=== PATIENT | male | born 1990 | race Two or more races ===

== ENCOUNTER 2017-08-12 12:41 | Outpatient (CLI) | payer OTHER ==
[~2017-08-12] VITALS: Ht 170.2 cm; Wt 77.1 kg
[~2017-08-12 12:41] MED LIST: PANT40TA2 PO; PROPOFOL 200 MG/20 ML VIAL As Ordered ONE
[2017-08-12] MEDS ORDERED: LIDOCAINE 2% INJ 100 MG/5 ML SDV (FOR ANES.) As Ordered ONE (12:47)
[2017-08-12] MEDS ORDERED: fentaNYL 100 MCG/2 ML INJECTION (J3010) As Ordered ONE (14:14)
--- NOTE | 2017-08-12 14:24 | ROOR ---
Patient Name: Henrik Mckay Procedure Date: 08/12/2017 2:02 PM Date of : 1990 Age: 27 Room: [facility] Gender: Male Note Status: Finalized Procedure: Upper GI endoscopy + Balloon Dilatation Indications: Dysphagia, For therapy of eosinophilic esophagitis Providers: Ryley Eugene MD Referring MD: JERONIMO العلي MD Requesting Provider: Medicines: Monitored Anesthesia Care Complications: No immediate complications. Procedure: Pre-Anesthesia Assessment: - The heart rate, respiratory rate, oxygen saturations, blood pressure, adequacy of pulmonary ventilation, and response to care were monitored throughout the procedure. The Endoscope was introduced through the mouth, and advanced to the second part of duodenum. The upper GI endoscopy was accomplished without difficulty. The patient tolerated the procedure well. Findings: The Z-line was regular and was found 38 cm from the incisors. Mucosal changes including ringed esophagus and tight circumferential folds were found in the entire esophagus. A TTS dilator was passed through the scope. Dilation with a 15-16.5-18 mm balloon dilator was performed to 15 mm. The dilation site was examined and showed complete resolution of luminal narrowing. No other significant abnormalities were identified in a careful examination of the stomach. The exam of the duodenum was otherwise normal. Impression: - Z-line regular, 38 cm from the incisors. - Esophageal mucosal changes secondary to eosinophilic esophagitis. Dilated. - No specimens collected. - The examination was otherwise normal. Recommendation: - Patient has a contact number available for emergencies. The signs and symptoms of potential delayed complications were discussed with the patient. Return to normal activities tomorrow. Written discharge instructions were provided to the patient. - Soft diet for 3 days. - Continue present medications. - Discharge patient to home. - Continue present medications. - Return to GI office in 1 month. - The findings and recommendations were discussed with the patient's family. Ryley Eugene MD Ryley Eugene MD 08/12/2017 2:24:03 PM This report has been signed electronically. Number of Addenda: 0 Note Initiated On: 08/12/2017 2:02 PM Estimated Blood Loss: Estimated blood loss: none.
[2017-08-12 15:04] VITALS: BP 118/84
== END 2017-08-12 15:06 | disposition home or self-care (01) ==
LOC: M OPP 12:41
PROVIDERS: ATTEND Internal Medicine Gastroenterology
DX: R13.10 Dysphagia, unspecified (principal); K20.0 Eosinophilic esophagitis; K44.9 Diaphragmatic hernia without obstruction or gangrene; R12 Heartburn; K21.9 Gastro-esophageal reflux disease without esophagitis; M19.90 Unspecified osteoarthritis, unspecified site; K62.5 Hemorrhage of anus and rectum; K60.5 Anorectal fistula; L05.91 Pilonidal cyst without abscess; Z79.899 Other long term (current) drug therapy; R63.0 Anorexia; R63.4 Abnormal weight loss
CPT/HCPCS: 43249; J3010

== ENCOUNTER 2017-08-16 10:09 | Day surgery (SDC) | payer OTHER ==
[~2017-08-16] VITALS: Ht 170.2 cm; Wt 77.1 kg
[~2017-08-16 10:09] MED LIST changes: -PROPOFOL 200 MG/20 ML VIAL As Ordered ONE
[2017-08-16] MEDS ORDERED: LR 1,000 ML IV SCH ×2 (10:15→13:30)
[2017-08-16] MEDS ORDERED: KETOROLAC 60 MG/2 ML VIAL (J1885) As Ordered ONE (11:22)
[2017-08-16] MEDS ORDERED: GLYCOPYRROLATE INJ 0.2 MG/ML 2 ML VIAL As Ordered ONE (11:22)
[2017-08-16] MEDS ORDERED: ONDANSETRON 4MG/2ML VIAL (J2405) As Ordered ONE (11:22)
[2017-08-16] MEDS ORDERED: LIDOCAINE 2% INJ 100 MG/5 ML SDV (FOR ANES.) As Ordered ONE (11:22)
[2017-08-16] MEDS ORDERED: ROCURONIUM BROMIDE 50 MG/5 ML VIAL/SYRINGE As Ordered ONE (11:22)
[2017-08-16] MEDS ORDERED: NEOSTIGMINE 10 MG/10 ML VIAL (J2710) As Ordered ONE (11:22)
[2017-08-16] MEDS ORDERED: PROPOFOL 200 MG/20 ML VIAL As Ordered ONE ×2 (11:22→12:42)
[2017-08-16] MEDS ORDERED: dexameTHASONE 4 MG/ML 1ML VIAL (J1100) As Ordered ONE (11:22)
[2017-08-16] MEDS ORDERED: fentaNYL 100 MCG/2 ML INJECTION (J3010) As Ordered ONE (11:23)
[2017-08-16] MEDS ORDERED: MIDAZOLAM INJ 2 MG/2 ML VIAL (J2250) As Ordered ONE (11:23)
[2017-08-16] MEDS ORDERED: HYDROmorphone HCL 2 MG/ML 1ML VIAL (J1170) As Ordered ONE (11:23)
[2017-08-16] MEDS ORDERED: MEPERIDINE INJ 25 MG/ML VIAL (J2175) As Ordered ONE (13:05)
[2017-08-16] MEDS: MEPERIDINE INJ 25 MG/ML VIAL (J2175) IV PRN ×2 (13:07→13:14)
[2017-08-16] MEDS ORDERED: MORPHINE 2 MG/ML 1ML SYRINGE IV PRN (13:30)
[2017-08-16] MEDS ORDERED: METOCLOPRAMIDE INJ 10MG/2ML VIAL (J2765) IV PRN (13:30)
[2017-08-16] MEDS ORDERED: ONDANSETRON 4MG/2ML VIAL (J2405) IV PRN (13:30)
[2017-08-16] MEDS ORDERED: fentaNYL 100 MCG/2 ML INJECTION (J3010) IV PRN (13:30)
[2017-08-16] MEDS ORDERED: PERCOCET 5MG/325MG TAB PO PRN (13:30)
[2017-08-16] MEDS ORDERED: NORCO, ANEXSIA 5/325MG TABLET (HYDROcodone/ACETAMINOPHEN) PO PRN (13:45)
[2017-08-16] MEDS ORDERED: LABETALOL HCL 100 MG/20 ML VIAL As Ordered ONE (14:16)
--- NOTE | 2017-08-16 19:06 | RO ---
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 PROCEDURE: Pilonidal cystectomy with rectal exam under anesthesia and unroofing of partial anal fistula partial fistulotomy. SURGEON: Dr. Hunter MOUNTAIN BIKE GUIDE: None. ANESTHESIA: Spinal. ESTIMATED BLOOD LOSS: 5. COMPLICATIONS: None. INDICATIONS FOR PROCEDURE: The patient is a 27-year-old male presents with a history of anal leakage and perineal pain. Had a previous pilonidal cyst that was incised and has a scar from them. On exam in the office he did have a pilonidal cyst with midline sinus tract openings as well as two other openings in the midline just outside of the anus suspicious for anal fistula. Recommendation was to proceed pilonidal cystectomy as well as the exam under anesthesia and possible fistulotomy. Risks, benefits of the procedure not limited but including bleeding, infection, damage to surrounding structures, incontinence, need for further surgery. He understood and signed consent. PROCEDURE: The patient brought back to operating room six after spinal sedation. The perineal area was sterilely prepped and draped with Betadine. Next a time-out was done to confirm proper patient, proper procedure. Following that, starting with the pilonidal cyst an elliptical incision was made approximately 4 x 6 cm in size. Incision was carried circumferentially around the cyst in the sinus tracts and this was taken down to the level the presacral fascia. All this was removed intact as one large specimen. Electrocautery was used to control hemostasis and the wound was then irrigated and left open. Next, there were two openings distally when they were both probed they were connected internally with the skin bridge between them. I placed a bivalve retractor into the rectum. There was no signs of any fistula openings inside of the anus or the rectum. Probing of both of these holes connected to each other but there is no apparent communication to any other cavities or spaces. I attempted to irrigate and inject hydrogen peroxide through an angiocatheter into both of these holes however, there is no communication anywhere inside of the rectum that could be visualized. So the skin bridge was in between these two incisions about a centimeter and half in length, was opened up using electrocautery and again I tried to irrigate, there are no signs of any other communication. This was then covered with a sterile 4x4 gauze. The pilonidal cyst was covered with 4x4 gauze and the patient was then awakened from anesthesia and sent to PACU in stable condition.
[2017-08-16 19:30] VITALS: BP 116/62
== END 2017-08-16 19:31 | disposition home or self-care (01) ==
LOC: M SDC 10:09
PROVIDERS: ATTEND Surgery
DX: L05.91 Pilonidal cyst without abscess (principal); K60.3 Anal fistula; Z79.899 Other long term (current) drug therapy
CPT/HCPCS: 11772; 46270; 88305; J2175; J2250; J3010

== ENCOUNTER → 2017-09-27 | Outpatient (REF) | payer OTHER | LOC: M SFHCLERA 12:43 | PROVIDERS: ATTEND Nurse Practitioner Family | DX: Z48.00 Encounter for change or removal of nonsurgical wound dressing (principal) | CPT/HCPCS: 87070; 87077; 87186; G0463 ==